=== PATIENT | male | born 1950 | race Caucasian/White ===

== ENCOUNTER 2025-05-16 09:07 | Outpatient (CLI) | payer MEDICARE | END 2025-05-16 09:08 | disposition home or self-care (01) | LOC: CSHSLEEP 09:07 | PROVIDERS: ATTEND Nurse Practitioner Family | DX: G47.9 Sleep disorder, unspecified (principal); G25.89 Other specified extrapyramidal and movement disorders; G47.33 Obstructive sleep apnea (adult) (pediatric) | CPT/HCPCS: 95810 ==

== ENCOUNTER 2025-06-18 12:34 | Outpatient (CLI) | payer MEDICARE | END 2025-06-18 12:35 | disposition home or self-care (01) | LOC: CSHULT 12:34 | PROVIDERS: ATTEND Nurse Practitioner Family | DX: G45.3 Amaurosis fugax (principal); I35.8 Other nonrheumatic aortic valve disorders | CPT/HCPCS: 93306; 93880 ==